=== PATIENT | female | born 1965 | race Caucasian/White ===

== ENCOUNTER → 2016-11-30 | Outpatient (CLI) | payer MEDICAID | END | disposition home or self-care (01) | LOC: CFH 12:27 | PROVIDERS: ATTEND Genetic Counselor, MS | DX: Z02.9 Encounter for administrative examinations, unspecified (principal) ==

== ENCOUNTER → 2017-02-02 | Outpatient (CLI) | payer MEDICAID | END | disposition home or self-care (01) | LOC: CFH 10:34 | PROVIDERS: ATTEND Genetic Counselor, MS | DX: Z02.9 Encounter for administrative examinations, unspecified (principal) ==

== ENCOUNTER → 2017-02-12 | Outpatient (CLI) | payer MEDICAID | END | disposition home or self-care (01) | LOC: CFH 14:07 | PROVIDERS: ATTEND Genetic Counselor, MS | DX: N63 Unspecified lump in breast (principal); R92.2 Inconclusive mammogram | CPT/HCPCS: 76641; G0204 ==

== ENCOUNTER 2018-10-05 13:43 | Inpatient (IN) | payer MEDICAID ==
[~2018-10-05] VITALS: Ht 162.6 cm; Wt 99.9 kg
[2018-10-05] MEDS ORDERED: SODIUM CHLORIDE FLUSH 10ML SYR IVF ONE (14:30)
[2018-10-05] MEDS ORDERED: PLEASE ENTER ALLERGIES MC SCH (14:30)
[2018-10-05 14:50] LABS: BASOPHILS # (AUTO) 0.02 x10^3/uL (0-0.1); BASOPHILS % (AUTO) 0 % (0-1); EOSINOPHILS % (AUTO) 2 % (1-7); LYMPHOCYTES # (AUTO) 1.22 x10^3/uL (1-3.4); LYMPHOCYTES % (AUTO) 21 % (22-44); MD NO; MEAN CORPUSCULAR HEMOGLOBIN 32.4 pg (27.0-34.8); MEAN CORPUSCULAR VOLUME 95.3 fL (80-100); MONOCYTES # (AUTO) 0.08 x10^3/uL (0.2-0.8); MONOCYTES % (AUTO) 2 % (2-9); NEUTROPHILS # (AUTO) 4.35 x10^3/uL (1.8-6.8); NEUTROPHILS % (AUTO) 75 % (42-75); PLATELET COUNT 198 x10^3/uL (130-400); RED BLOOD COUNT 3.69 x10^6/uL (3.82-5.3); RED CELL DISTRIBUTION WIDTH 14.5 % (9.6-15.2)
[2018-10-05 15:01] LABS: ALBUMIN 3.3 g/dL (3.4-5.0); ANION GAP 8 mmol/L (5-15); CALCIUM 8.6 mg/dL (8.5-10.1); CHLORIDE 110 mmol/L (98-107)
[2018-10-05 15:06] LABS: ALANINE AMINOTRANSFERASE 95 U/L (12-78); ALKALINE PHOSPHATASE 114 U/L (45-117); BILIRUBIN,TOTAL 0.6 mg/dL (0.2-1.0); CREATININE 0.76 mg/dL (0.55-1.02); TOTAL PROTEIN 6.3 g/dL (6.4-8.2); TROPONIN I 0.026 ng/mL (0.000-0.045)
[2018-10-05] MEDS ORDERED: OMNIPAQUE 350 MG/ML, 100ML BOTTLE ONE (16:45)
[2018-10-05] MEDS ORDERED: ALBUTEROL/IPRATROPIUM 2.5MG/0.5MG, 3 ML NPPB ONE (17:00)
--- NOTE | 2018-10-05 17:12 | NUR ---
PATIENT RETURNED FROM BATHROOM SLIGHTLY SHORT OF BREATH. ROOM AIR SATS 87%, PLACED ON 1.5L NC AND INCREASED TO 93%. PREDINSONE GIVEN TO PATIENT AND RECONNECTED TO CARDIAC/PULSE OX MONITORING.
[2018-10-05] MEDS ORDERED: ALBUTEROL/IPRATROPIUM 2.5MG/0.5MG, 3 ML ONE (17:15)
[2018-10-05] MEDS ORDERED: FLUT9.9S16 INH (17:44)
[2018-10-05] MEDS ORDERED: BUPR300T4 PO (17:44)
[2018-10-05] MEDS ORDERED: IBUP-653 PO (17:44)
[2018-10-05] MEDS ORDERED: OMEP-110 PO (17:44)
[2018-10-05] MEDS ORDERED: DEXT10TA7 PO (17:44)
[2018-10-05] MEDS ORDERED: ARIP2TAB8 PO (17:44)
[2018-10-05] MEDS ORDERED: ALBU18HF INH (17:44)
[2018-10-05] MEDS ORDERED: FLUT1BLS3 INH (17:44)
[2018-10-05] MEDS ORDERED: HYDR10TA4 PO (17:44)
[2018-10-05 18:41] VITALS: BP 116/83
[2018-10-05 19:47] VITALS: BP 120/87
[2018-10-05] MEDS ORDERED: LIDODERM 5% PATCH TD PRN (20:00)
[2018-10-05] MEDS ORDERED: hydrALAzine 20 MG/ML, 1ML IVPush PRN (20:00)
[2018-10-05] MEDS ORDERED: DOCUSATE 100 MG CAPSULE PO PRN (20:00)
[2018-10-05] MEDS ORDERED: ONDANSETRON ODT 4 MG PO PRN (20:00)
[2018-10-05] MEDS ORDERED: GABAPENTIN 300 MG CAPSULE PO PRN (20:00)
[2018-10-05] MEDS ORDERED: ACETAMINOPHEN 325 MG TABLET PO PRN (20:00)
[2018-10-05] MEDS ORDERED: ALBUTEROL SULFATE INH SCH (21:30)
[2018-10-05] MEDS ORDERED: ALBUTEROL/IPRATROPIUM 2.5MG/0.5MG, 3 ML NPPB PRN (22:00)
[2018-10-05] MEDS ORDERED: hydrOXyzine 10MG TABLET ONE (22:54)
[2018-10-05] MEDS: BUPROPION SR 150 MG TABLET PO SCH (23:17)
[2018-10-05] MEDS: hydrOXyzine 50MG TABLET PO PRN (23:17)
[2018-10-05] MEDS: IBUPROFEN 800 MG TABLET PO SCH (23:17)
[2018-10-06 02:20] VITALS: BP 96/63
[2018-10-06 05:54] LABS: BASOPHILS % (AUTO) 0 % (0-1); EOSINOPHILS % (AUTO) 0 % (1-7); LYMPHOCYTES # (AUTO) 0.73 x10^3/uL (1-3.4); LYMPHOCYTES % (AUTO) 13 % (22-44); MD NO; MEAN CORPUSCULAR HGB CONC 33.7 g/dL (32.4-35.8); MEAN CORPUSCULAR VOLUME 95.1 fL (80-100); MEAN PLATELET VOLUME 8.3 fL (7.4-10.4); MONOCYTES # (AUTO) 0.15 x10^3/uL (0.2-0.8); MONOCYTES % (AUTO) 3 % (2-9); NEUTROPHILS # (AUTO) 4.99 x10^3/uL (1.8-6.8); NEUTROPHILS % (AUTO) 85 % (42-75); PLATELET COUNT 214 x10^3/uL (130-400); RED BLOOD COUNT 3.87 x10^6/uL (3.82-5.3); RED CELL DISTRIBUTION WIDTH 14.4 % (9.6-15.2)
[2018-10-06 05:59] LABS: ANION GAP 7 mmol/L (5-15); CALCIUM 9.1 mg/dL (8.5-10.1); CHLORIDE 106 mmol/L (98-107)
[2018-10-06 07:34] VITALS: BP 121/78
[2018-10-06] MEDS: OMEPRAZOLE 20 MG CAPSULE.DR PO SCH (08:04)
[2018-10-06] MEDS: BUPROPION SR 150 MG TABLET PO SCH ×2 (08:04→20:42)
[2018-10-06] MEDS: IBUPROFEN 800 MG TABLET PO SCH ×2 (08:04→20:43)
[2018-10-06] MEDS: ARIPIPRAZOLE 2 MG TABLET PO SCH (08:04)
[2018-10-06] MEDS ORDERED: BUPROPION SR 150 MG TABLET PO SCH (09:00)
[2018-10-06] MEDS ORDERED: IBUPROFEN 800 MG TABLET PO SCH (09:00)
[2018-10-06] MEDS ORDERED: hydrOXyzine 10MG TABLET PO SCH (09:00)
[2018-10-06] MEDS: FLUTICASONE NASAL SPRAY 16GM NAS SCH (09:18)
[2018-10-06] MEDS: ALBUTEROL/IPRATROPIUM 2.5MG/0.5MG, 3 ML HHN SCH ×2 (09:50→21:00)
[2018-10-06 12:16] VITALS: BP 95/67
[2018-10-06] MEDS: BUDESONIDE 0.5 MG/2 ML INHA NPPB SCH ×2 (13:45→21:00)
[2018-10-06 19:00] VITALS: BP 106/69
[2018-10-06] MEDS ORDERED: POTASSIUM CHLORIDE 20 MEQ TAB.ER.PRT PO ONE (19:00)
[2018-10-06] MEDS: TEMAZEPAM 15 MG CAPSULE PO PRN (20:42)
[2018-10-06] MEDS: FUROSEMIDE 20 MG/2 ML IV SCH (20:42)
[2018-10-06] MEDS: hydrOXyzine 50MG TABLET PO PRN (20:47)
[2018-10-07 01:09] VITALS: BP 110/72
[2018-10-07] MEDS: ALBUTEROL/IPRATROPIUM 2.5MG/0.5MG, 3 ML HHN SCH ×7 (06:00→21:00)
[2018-10-07 06:52] LABS: ANION GAP 5 mmol/L (5-15); CALCIUM 9.4 mg/dL (8.5-10.1); CHLORIDE 105 mmol/L (98-107); CREATININE 0.88 mg/dL (0.55-1.02)
[2018-10-07 07:29] VITALS: BP 114/78
[2018-10-07] MEDS: FLUTICASONE NASAL SPRAY 16GM NAS SCH (08:32)
[2018-10-07] MEDS: IBUPROFEN 800 MG TABLET PO SCH ×2 (08:32→20:49)
[2018-10-07] MEDS: ARIPIPRAZOLE 2 MG TABLET PO SCH (08:32)
[2018-10-07] MEDS: FUROSEMIDE 20 MG/2 ML IV SCH ×2 (08:33→17:43)
[2018-10-07] MEDS: OMEPRAZOLE 20 MG CAPSULE.DR PO SCH (08:33)
[2018-10-07] MEDS: BUPROPION SR 150 MG TABLET PO SCH ×2 (08:33→20:50)
[2018-10-07] MEDS: BUDESONIDE 0.5 MG/2 ML INHA NPPB SCH ×2 (09:00→20:00)
[2018-10-07] MEDS ORDERED: LISINOPRIL 5 MG TABLET PO SCH (12:30)
[2018-10-07 13:56] VITALS: BP 118/74
[2018-10-07] MEDS: SPIRONOLACTONE 25 MG TABLET PO SCH (14:13)
[2018-10-07] MEDS: CARVEDILOL 3.125 MG TABLET PO SCH (17:43)
[2018-10-07 19:02] VITALS: BP 117/76
[2018-10-07] MEDS: hydrOXyzine 50MG TABLET PO PRN (20:49)
[2018-10-07] MEDS: TEMAZEPAM 15 MG CAPSULE PO PRN (20:50)
[2018-10-08 01:15] VITALS: BP 116/80
[2018-10-08] MEDS: CARVEDILOL 3.125 MG TABLET PO SCH ×2 (05:43→16:48)
[2018-10-08 06:16] LABS: ALBUMIN 3.4 g/dL (3.4-5.0); ANION GAP 5 mmol/L (5-15); CALCIUM 9.3 mg/dL (8.5-10.1); CHLORIDE 103 mmol/L (98-107)
[2018-10-08 06:22] LABS: ALANINE AMINOTRANSFERASE 64 U/L (12-78); ALKALINE PHOSPHATASE 95 U/L (45-117); BILIRUBIN,TOTAL 0.6 mg/dL (0.2-1.0); CHOL/HDL RATIO 2.5; CHOLESTEROL, TOTAL 204 mg/dL (140-239); CREATININE 0.77 mg/dL (0.55-1.02); HDL CHOL % 41 % (28-40); HDL CHOLESTEROL (DIRECT) 83 mg/dL (40-60); LDL CHOLESTEROL,CALCULATED 104 mg/dL (54-169); LDL/HDL RATIO 1.3 (0.5-3.0); TOTAL PROTEIN 6.9 g/dL (6.4-8.2); TRIGLYCERIDES 84 mg/dL (50-200); VLDL CHOLESTEROL 17 mg/dL (0-25)
[2018-10-08] MEDS: BUDESONIDE 0.5 MG/2 ML INHA NPPB SCH ×3 (06:40→20:45)
[2018-10-08 08:37] VITALS: BP 107/76
[2018-10-08] MEDS: FUROSEMIDE 20 MG/2 ML IV SCH ×2 (08:51→16:48)
[2018-10-08] MEDS: FLUTICASONE NASAL SPRAY 16GM NAS SCH (08:51)
[2018-10-08] MEDS: SPIRONOLACTONE 25 MG TABLET PO SCH (08:51)
[2018-10-08] MEDS: IBUPROFEN 800 MG TABLET PO SCH ×2 (08:51→20:12)
[2018-10-08] MEDS: BUPROPION SR 150 MG TABLET PO SCH ×2 (08:51→20:12)
[2018-10-08] MEDS: ARIPIPRAZOLE 2 MG TABLET PO SCH (08:51)
[2018-10-08] MEDS: OMEPRAZOLE 20 MG CAPSULE.DR PO SCH (08:51)
[2018-10-08 12:49] VITALS: BP 108/75
[2018-10-08 19:43] VITALS: BP 112/73
[2018-10-08] MEDS ORDERED: hydrOXyzine 10MG TABLET ONE (20:09)
[2018-10-08] MEDS: TEMAZEPAM 15 MG CAPSULE PO PRN (20:12)
[2018-10-08] MEDS: hydrOXyzine 50MG TABLET PO PRN (20:13)
[2018-10-09 01:37] VITALS: BP 114/78
[2018-10-09 04:55] VITALS: BP 113/77
[2018-10-09] MEDS: CARVEDILOL 3.125 MG TABLET PO SCH ×2 (04:57→17:46)
[2018-10-09 08:00] VITALS: BP 111/80
[2018-10-09] MEDS: OMEPRAZOLE 20 MG CAPSULE.DR PO SCH (08:15)
[2018-10-09] MEDS: IBUPROFEN 800 MG TABLET PO SCH ×2 (08:18→19:55)
[2018-10-09] MEDS: LOSARTAN 25MG TABLET PO SCH (08:18)
[2018-10-09] MEDS: SPIRONOLACTONE 25 MG TABLET PO SCH (08:19)
[2018-10-09] MEDS: BUPROPION SR 150 MG TABLET PO SCH ×2 (08:19→19:56)
[2018-10-09] MEDS: ARIPIPRAZOLE 2 MG TABLET PO SCH (08:20)
[2018-10-09] MEDS: FLUTICASONE NASAL SPRAY 16GM NAS SCH (08:21)
[2018-10-09] MEDS: FUROSEMIDE 20 MG/2 ML IV SCH ×2 (08:22→17:46)
[2018-10-09] MEDS: BUDESONIDE 0.5 MG/2 ML INHA NPPB SCH ×2 (08:35→21:30)
[2018-10-09] MEDS ORDERED: SODIUM CHLORIDE 0.9% 1,000 ML IV SCH (11:00)
[2018-10-09 14:40] VITALS: BP 110/73
[2018-10-09] MEDS ORDERED: hydrOXyzine 10MG TABLET ONE (19:53)
[2018-10-09] MEDS: TEMAZEPAM 15 MG CAPSULE PO PRN (19:55)
[2018-10-09] MEDS: hydrOXyzine 50MG TABLET PO PRN (19:56)
[2018-10-09 20:30] VITALS: BP 123/86
[2018-10-10 05:05] VITALS: BP 113/79
[2018-10-10] MEDS: CARVEDILOL 3.125 MG TABLET PO SCH ×2 (05:09→16:18)
[2018-10-10 06:21] LABS: INTERNATIONAL NORMALIZED RATIO 1.01 (0.93-1.1); PROTHROMBIN TIME 10.7 Seconds (9.6-11.5)
[2018-10-10 06:27] LABS: ANION GAP 4 mmol/L (5-15); CALCIUM 9.3 mg/dL (8.5-10.1); CHLORIDE 104 mmol/L (98-107); CREATININE 0.84 mg/dL (0.55-1.02)
[2018-10-10 06:32] LABS: BASOPHILS # (AUTO) 0.04 x10^3/uL (0-0.1); BASOPHILS % (AUTO) 0 % (0-1); EOSINOPHILS # (AUTO) 0.18 x10^3/uL (0-0.4); EOSINOPHILS % (AUTO) 2 % (1-7); LYMPHOCYTES # (AUTO) 2.47 x10^3/uL (1-3.4); LYMPHOCYTES % (AUTO) 26 % (22-44); MD NO; MEAN CORPUSCULAR HEMOGLOBIN 32.1 pg (27.0-34.8); MEAN CORPUSCULAR HGB CONC 33.8 g/dL (32.4-35.8); MEAN CORPUSCULAR VOLUME 95.1 fL (80-100); MEAN PLATELET VOLUME 8.8 fL (7.4-10.4); MONOCYTES # (AUTO) 0.73 x10^3/uL (0.2-0.8); MONOCYTES % (AUTO) 8 % (2-9); NEUTROPHILS # (AUTO) 6.02 x10^3/uL (1.8-6.8); NEUTROPHILS % (AUTO) 64 % (42-75); PLATELET COUNT 263 x10^3/uL (130-400); RED BLOOD COUNT 4.99 x10^6/uL (3.82-5.3); RED CELL DISTRIBUTION WIDTH 14.4 % (9.6-15.2)
[2018-10-10 07:30] VITALS: BP 112/84
[2018-10-10] MEDS: OMEPRAZOLE 20 MG CAPSULE.DR PO SCH (07:30)
[2018-10-10] MEDS: FUROSEMIDE 20 MG/2 ML IV SCH ×2 (07:30→16:18)
[2018-10-10] MEDS: LOSARTAN 25MG TABLET PO SCH (08:45)
[2018-10-10] MEDS: SPIRONOLACTONE 25 MG TABLET PO SCH (08:45)
[2018-10-10] MEDS: BUPROPION SR 150 MG TABLET PO SCH ×2 (08:45→19:56)
[2018-10-10] MEDS: IBUPROFEN 800 MG TABLET PO SCH ×2 (08:45→19:56)
[2018-10-10] MEDS: ARIPIPRAZOLE 2 MG TABLET PO SCH (08:45)
[2018-10-10] MEDS: FLUTICASONE NASAL SPRAY 16GM NAS SCH (08:55)
[2018-10-10 08:59] VITALS: BP 113/86
[2018-10-10] MEDS: BUDESONIDE 0.5 MG/2 ML INHA NPPB SCH ×2 (11:10→20:32)
[2018-10-10] MEDS ORDERED: MIDAZOLAM 1 MG/ML, 2ML ONE (11:24)
[2018-10-10] MEDS ORDERED: VERAPAMIL 2.5 MG/ML, 2ML ONE (11:24)
[2018-10-10] MEDS ORDERED: NITROGLYCERIN 5 MG/ML, 10ML ONE (11:24)
[2018-10-10] MEDS ORDERED: HEPARIN 1,000 UNITS/ML, 10ML ONE (11:24)
[2018-10-10] MEDS ORDERED: FENTANYL PF 100 MCG/2ML ONE (11:24)
[2018-10-10] MEDS ORDERED: LIDOCAINE-MPF 1%, 5ML ONE (11:25)
[2018-10-10 14:00] VITALS: BP 100/73
[2018-10-10 18:38] VITALS: BP 101/70
[2018-10-10] MEDS: TEMAZEPAM 15 MG CAPSULE PO PRN ×2 (20:05→20:11)
[2018-10-10] MEDS: hydrOXyzine 50MG TABLET PO PRN (20:11)
[2018-10-11 01:59] VITALS: BP 102/78
[2018-10-11 05:04] LABS: ANION GAP 6 mmol/L (5-15); CALCIUM 9.1 mg/dL (8.5-10.1); CHLORIDE 102 mmol/L (98-107)
[2018-10-11 05:43] VITALS: BP 118/88
[2018-10-11] MEDS: CARVEDILOL 3.125 MG TABLET PO SCH ×2 (05:47→18:17)
[2018-10-11 08:08] VITALS: BP 122/83
[2018-10-11] MEDS: BUDESONIDE 0.5 MG/2 ML INHA NPPB SCH ×2 (08:15→21:00)
[2018-10-11] MEDS: FLUTICASONE NASAL SPRAY 16GM NAS SCH (08:33)
[2018-10-11] MEDS: OMEPRAZOLE 20 MG CAPSULE.DR PO SCH (08:33)
[2018-10-11] MEDS: FUROSEMIDE 20 MG/2 ML IV SCH (08:33)
[2018-10-11] MEDS: IBUPROFEN 800 MG TABLET PO SCH ×2 (08:33→22:18)
[2018-10-11] MEDS: SPIRONOLACTONE 25 MG TABLET PO SCH (08:33)
[2018-10-11] MEDS: BUPROPION SR 150 MG TABLET PO SCH ×2 (08:34→22:18)
[2018-10-11] MEDS: LOSARTAN 25MG TABLET PO SCH (08:34)
[2018-10-11] MEDS: ARIPIPRAZOLE 2 MG TABLET PO SCH (10:39)
[2018-10-11] MEDS ORDERED: FUROSEMIDE 40 MG/4 ML IV ONE (12:00)
[2018-10-11 13:32] VITALS: BP 107/76
[2018-10-11 19:30] VITALS: BP 108/74
[2018-10-11] MEDS: hydrOXyzine 50MG TABLET PO PRN (22:18)
[2018-10-11] MEDS: TEMAZEPAM 15 MG CAPSULE PO PRN (22:19)
[2018-10-12 02:43] VITALS: BP 101/74
[2018-10-12 05:02] LABS: ANION GAP 7 mmol/L (5-15); CALCIUM 9.1 mg/dL (8.5-10.1); CHLORIDE 102 mmol/L (98-107); CREATININE 0.89 mg/dL (0.55-1.02)
[2018-10-12] MEDS: CARVEDILOL 3.125 MG TABLET PO SCH (06:48)
[2018-10-12 07:32] VITALS: BP 104/69
[2018-10-12] MEDS: BUDESONIDE 0.5 MG/2 ML INHA NPPB SCH (08:09)
[2018-10-12] MEDS: FLUTICASONE NASAL SPRAY 16GM NAS SCH (09:59)
[2018-10-12] MEDS: OMEPRAZOLE 20 MG CAPSULE.DR PO SCH (09:59)
[2018-10-12] MEDS ORDERED: FUROSEMIDE 40 MG/4 ML IV ONE (10:00)
[2018-10-12] MEDS: SPIRONOLACTONE 25 MG TABLET PO SCH (10:01)
[2018-10-12] MEDS: LOSARTAN 25MG TABLET PO SCH (10:02)
[2018-10-12] MEDS: IBUPROFEN 800 MG TABLET PO SCH (10:03)
[2018-10-12] MEDS: BUPROPION SR 150 MG TABLET PO SCH (10:03)
[2018-10-12 10:04] VITALS: BP 125/87
[2018-10-12] MEDS: ARIPIPRAZOLE 2 MG TABLET PO SCH (10:19)
[2018-10-12 13:22] VITALS: BP 99/70
[2018-10-12] MEDS ORDERED: CARV3.1212 PO (14:08)
[2018-10-12] MEDS ORDERED: POTA20TA6 PO (14:08)
[2018-10-12] MEDS ORDERED: FURO-92 PO (14:08)
[2018-10-12] MEDS ORDERED: LOSA25TA25 PO (14:08)
[2018-10-12] MEDS ORDERED: SIMV40TA3 PO (14:10)
[2018-10-12] MEDS ORDERED: SPIR25TA PO (14:13)
== END 2018-10-12 17:19 | disposition home or self-care (01) | DRG 286 ==
LOC: ED 17:01 → EDIP 17:02 → ED 17:17 → 4EST 18:27 → 5SO 10-10 12:53 → DCLOUNGE 10-12 16:57
PROVIDERS: ADMIT Internal Medicine; ATTEND Internal Medicine
PROC: 4A023N8 Measurement of Cardiac Sampling and Pressure, Bilateral, Percutaneous Approach (ICD-10-PCS; principal; 2018-10-10)
PROC: B2111ZZ Fluoroscopy of Multiple Coronary Arteries using Low Osmolar Contrast (ICD-10-PCS; 2018-10-10)
PROC: B2161ZZ Fluoroscopy of Right and Left Heart using Low Osmolar Contrast (ICD-10-PCS; 2018-10-10)
DX: I42.9 Cardiomyopathy, unspecified (principal); J96.21 Acute and chronic respiratory failure with hypoxia; I26.09 Other pulmonary embolism with acute cor pulmonale; I50.21 Acute systolic (congestive) heart failure; F33.9 Major depressive disorder, recurrent, unspecified; J44.1 Chronic obstructive pulmonary disease with (acute) exacerbation; J98.11 Atelectasis; E66.01 Morbid (severe) obesity due to excess calories; F10.10 Alcohol abuse, uncomplicated; F15.10 Other stimulant abuse, uncomplicated; I08.1 Rheumatic disorders of both mitral and tricuspid valves; I11.0 Hypertensive heart disease with heart failure; I25.10 Atherosclerotic heart disease of native coronary artery without angina pectoris; Z68.37 Body mass index [BMI] 37.0-37.9, adult; Z72.0 Tobacco use; Z83.3 Family history of diabetes mellitus; Z87.01 Personal history of pneumonia (recurrent); Z99.81 Dependence on supplemental oxygen; Z88.8 Allergy status to other drugs, medicaments and biological substances; R73.9 Hyperglycemia, unspecified
CPT/HCPCS: 36415; 93460; 99285; J7620; J7626; 71045; 71275; 80048; 80053; 80061; 80074; 83036; 83735; 83880; 84484; 85025; 85610; 93005; 94640; 99156; C1769; C1894; C8929; G0378; J1644; J1940; J2250; J3010; Q9967; J7512

== ENCOUNTER 2018-11-10 10:41 | Outpatient (CLI) | payer MEDICAID ==
[~2018-11-10 10:41] MED LIST: ALBU18HF INH; ARIP2TAB8 PO; BUPR300T4 PO; CARV3.1212 PO; DEXT10TA7 PO; FLUT1BLS3 INH; FLUT9.9S16 INH; FURO-92 PO; HYDR10TA4 PO; IBUP-653 PO; LOSA25TA25 PO; OMEP-110 PO; POTA20TA6 PO; SIMV40TA3 PO; SPIR25TA PO
== END 2018-11-10 23:59 | disposition home or self-care (01) ==
LOC: CVU 10:41
PROVIDERS: ATTEND Internal Medicine Cardiovascular Disease
DX: I34.0 Nonrheumatic mitral (valve) insufficiency (principal); I50.9 Heart failure, unspecified; E78.5 Hyperlipidemia, unspecified; I42.9 Cardiomyopathy, unspecified
CPT/HCPCS: C8929; Q9957

== ENCOUNTER 2019-01-02 11:53 | Emergency (ER) | payer MEDICAID ==
[~2019-01-02] VITALS: Ht 162.6 cm; Wt 98.8 kg
[2019-01-02] MEDS ORDERED: ASPIRIN 81 MG TABLET CHEW PO ONE (12:30)
[2019-01-02 12:55] LABS: BASOPHILS # (AUTO) 0.04 x10^3/uL (0-0.1); BASOPHILS % (AUTO) 1 % (0-1); EOSINOPHILS # (AUTO) 0.18 x10^3/uL (0-0.4); EOSINOPHILS % (AUTO) 2 % (1-7); LYMPHOCYTES % (AUTO) 27 % (22-44); MD NO; MEAN CORPUSCULAR HEMOGLOBIN 30.9 pg (27.0-34.8); MEAN CORPUSCULAR VOLUME 90.9 fL (80-100); MEAN PLATELET VOLUME 8.5 fL (7.4-10.4); MONOCYTES # (AUTO) 0.43 x10^3/uL (0.2-0.8); MONOCYTES % (AUTO) 6 % (2-9); NEUTROPHILS # (AUTO) 4.82 x10^3/uL (1.8-6.8); NEUTROPHILS % (AUTO) 65 % (42-75); PLATELET COUNT 255 x10^3/uL (130-400); RED BLOOD COUNT 4.49 x10^6/uL (3.82-5.3); RED CELL DISTRIBUTION WIDTH 12.5 % (9.6-15.2)
[2019-01-02 13:06] LABS: ANION GAP 4 mmol/L (5-15); CALCIUM 9.7 mg/dL (8.5-10.1); CHLORIDE 102 mmol/L (98-107); CREATININE 0.75 mg/dL (0.55-1.02)
[2019-01-02 13:10] LABS: TROPONIN I < 0.015 ng/mL (0.000-0.045)
--- NOTE | 2019-01-02 13:49 | NUR ---
TO ROOM FROM [facility]. PT ON HOME O2. STATES SHE AWOKE THIS MORNING WITH CP. MD KILLIAN COMPLETED ON ARRVIAL TO ROOM
[2019-01-02 14:01] VITALS: BP 121/69
--- NOTE | 2019-01-02 14:09 | NUR ---
Catr[place] RN: Patient given discharge instructions and they have confirmed that they understand the instructions. Patient ambulatory with steady gait.
== END 2019-01-02 14:10 | disposition home or self-care (01) ==
LOC: ED 14:04
DX: R07.2 Precordial pain (principal); J44.9 Chronic obstructive pulmonary disease, unspecified; I50.9 Heart failure, unspecified; I11.0 Hypertensive heart disease with heart failure
CPT/HCPCS: 36415; 71046; 80048; 82040; 84484; 85025; 93005; 99284

== ENCOUNTER 2019-03-09 15:22 | Outpatient (CLI) | payer MEDICAID | END 2019-03-09 23:59 | disposition home or self-care (01) | LOC: CVU 15:22 | PROVIDERS: ATTEND Internal Medicine Cardiovascular Disease | DX: I08.3 Combined rheumatic disorders of mitral, aortic and tricuspid valves (principal); E78.5 Hyperlipidemia, unspecified; I50.9 Heart failure, unspecified | CPT/HCPCS: 93306 ==

== ENCOUNTER 2019-08-29 11:04 | Outpatient (CLI) | payer MEDICAID ==
[~2019-08-29 11:04] MED LIST changes: +ARIP2TAB17 PO; -ARIP2TAB8 PO; -BUPR300T4 PO; +BUPR300T94 PO; +HYDR-2995 PO; -HYDR10TA4 PO; +SIMV40TA20 PO; -SIMV40TA3 PO
== END 2019-08-29 23:59 | disposition home or self-care (01) ==
LOC: CFH 11:04
PROVIDERS: ATTEND Internal Medicine Cardiovascular Disease
DX: I08.3 Combined rheumatic disorders of mitral, aortic and tricuspid valves (principal); I42.9 Cardiomyopathy, unspecified; I10 Essential (primary) hypertension; J44.9 Chronic obstructive pulmonary disease, unspecified; Z72.0 Tobacco use
CPT/HCPCS: 93306

== ENCOUNTER → 2020-03-13 | Outpatient (CLI) | payer MEDICAID | END | disposition home or self-care (01) | LOC: CFH 13:44 | PROVIDERS: ATTEND Genetic Counselor, MS | DX: N63.20 Unspecified lump in the left breast, unspecified quadrant (principal); N63.10 Unspecified lump in the right breast, unspecified quadrant; R92.8 Other abnormal and inconclusive findings on diagnostic imaging of breast | CPT/HCPCS: 76642; 77066; G0279 ==

== ENCOUNTER 2020-09-09 15:22 | Emergency (ER) | payer MEDICAID ==
[~2020-09-09] VITALS: Ht 162.6 cm; Wt 77.5 kg
--- NOTE | 2020-09-09 15:44 | NUR ---
rug cleaner: EKG done in triage
--- NOTE | 2020-09-09 15:59 | NUR ---
hog operator note: Pt to room from lobby.
--- NOTE | 2020-09-09 16:18 | NUR ---
ASSUMED CARE OF PATIENT. PATIENT REPORTS LEFT AND RIGHT CHEST PAIN X5 DAYS. COOK JELLY ON NSR NOTED. VS STABLE. CALL LIGHT IN PLACE. WILL CONTINUE TO MONITOR.
[2020-09-09 16:22] LABS: BASOPHILS % (AUTO) 1 % (0-1); EOSINOPHILS % (AUTO) 4 % (1-7); LYMPHOCYTES % (AUTO) 22 % (22-44); MEAN CORPUSCULAR HEMOGLOBIN 29.6 pg (27.0-34.8); MEAN CORPUSCULAR HGB CONC 33.4 g/dL (32.4-35.8); MEAN PLATELET VOLUME 7.5 fL (7.4-10.4); MONOCYTES % (AUTO) 9 % (2-9); NEUTROPHILS % (AUTO) 64 % (42-75); PLATELET COUNT 191 x10^3/uL (130-400); RED BLOOD COUNT 4.04 x10^6/uL (3.82-5.3); RED CELL DISTRIBUTION WIDTH 13.2 % (9.6-15.2)
[2020-09-09 16:23] LABS: MD NO
[2020-09-09 16:33] LABS: ANION GAP 7 mmol/L (5-15); CALCIUM 9.7 mg/dL (8.5-10.1); CHLORIDE 107 mmol/L (98-107); CREATININE 0.55 mg/dL (0.55-1.02)
[2020-09-09 16:37] LABS: TROPONIN I < 0.015 ng/mL (0.000-0.045)
[2020-09-09] MEDS ORDERED: KETOROLAC 30 MG/1 ML ONE (16:40)
[2020-09-09] MEDS ORDERED: KETOROLAC 30 MG/1 ML IVPush ONE (17:30)
[2020-09-09 17:48] VITALS: BP 134/97
--- NOTE | 2020-09-09 17:50 | NUR ---
pt discharged with home oxygen with family. vs stable. no acute distress noted. pt discharged
== END 2020-09-09 18:13 | disposition home or self-care (01) ==
LOC: ED 17:00
DX: R07.89 Other chest pain (principal); M94.0 Chondrocostal junction syndrome [Tietze]; R05 Cough; R00.0 Tachycardia, unspecified; I11.0 Hypertensive heart disease with heart failure; I50.9 Heart failure, unspecified; J44.9 Chronic obstructive pulmonary disease, unspecified; Z87.891 Personal history of nicotine dependence; Z88.8 Allergy status to other drugs, medicaments and biological substances; Z88.6 Allergy status to analgesic agent
CPT/HCPCS: 36415; 71045; 80048; 82040; 83880; 84484; 85025; 93005; 96374; 99285; J1885

== ENCOUNTER 2021-01-06 22:48 | Inpatient (IN) | payer MEDICAID ==
[~2021-01-06] VITALS: Ht 162.6 cm; Wt 75.0 kg
[2021-01-06] MEDS ORDERED: SODIUM CHLORIDE FLUSH 10ML SYR IVF ONE (23:30)
[2021-01-06] MEDS ORDERED: ONDANSETRON 2MG/ML, 2ML IVPush ONE (23:30)
[2021-01-06] MEDS ORDERED: SODIUM CHLORIDE 0.9% 1,000 ML IV ONE (23:30)
[2021-01-06] MEDS ORDERED: MORPHINE SULFATE 4 MG/ML, 1ML IVPush PRN (23:30)
[2021-01-06] MEDS ORDERED: FAMOTIDINE 20 MG/2 ML IVPush ONE (23:30)
[2021-01-07] MEDS ORDERED: FAMOTIDINE 20 MG/2 ML ONE (00:12)
[2021-01-07] MEDS ORDERED: ONDANSETRON 2MG/ML, 2ML ONE (00:12)
[2021-01-07] MEDS ORDERED: MORPHINE SULFATE 4 MG/ML, 1ML ONE (00:12)
[2021-01-07 00:27] LABS: MEAN CORPUSCULAR HEMOGLOBIN 29.4 pg (27.0-34.8); MEAN CORPUSCULAR HGB CONC 33.5 g/dL (32.4-35.8); MEAN PLATELET VOLUME 9.2 fL (7.4-10.4); PLATELET COUNT 153 x10^3/uL (130-400); RED BLOOD COUNT 3.74 x10^6/uL (3.82-5.3)
[2021-01-07 00:32] LABS: ALBUMIN 2.4 g/dL (3.4-5.0); ANION GAP 12 mmol/L (5-15); CHLORIDE 95 mmol/L (98-107)
--- NOTE | 2021-01-07 00:38 | NUR ---
ERP DR. MORAN AWARE OF PT BP.
[2021-01-07 00:39] LABS: MICROSCOPIC INDICATED
[2021-01-07 00:39] LABS: ALANINE AMINOTRANSFERASE 23 U/L (12-78); ALKALINE PHOSPHATASE 157 U/L (45-117); BILIRUBIN,TOTAL 0.6 mg/dL (0.2-1.0); CREATININE 2.45 mg/dL (0.55-1.02); TROPONIN I < 0.015 ng/mL (0.000-0.045)
[2021-01-07] MEDS: CEFTRIAXONE 1,000 MG in DEXTROSE 5% 50 ML IVPB ONE ×2 (01:00→01:09)
[2021-01-07] MEDS ORDERED: SODIUM CHLORIDE 0.9% 1,000ML IVBOLUS ONE ×2 (01:00→01:30)
[2021-01-07 01:01] LABS: BAND#(MANUAL) 1.08 x10^3/uL; BANDS%(MANUAL) 13 % (0-7); EOS#(MANUAL) 0.08 x10^3/uL (0.0-0.4); EOS% (MANUAL) 1 % (1-7); LYMPHS% (MANUAL) 6 % (22-44); MD YES; METAMYELOCYTES# (MANUAL) 0.08 x10^3/uL (0-0); METAMYELOCYTES% (MANUAL) 1 % (0-1); MONOS% (MANUAL) 6 % (2-9); MYELOCYTES# (MANUAL) 0.08 x10^3/uL (0-0); MYELOCYTES% (MANUAL) 1 % (0-0); SEG#(MANUAL) 5.98 x10^3/uL (1.8-6.8); SEGS% (MANUAL) 72 % (42-75)
[2021-01-07 01:02] LABS: ANISOCYTOSIS 1+; PMNS WITH VACUOLES 1+
[2021-01-07 01:03] LABS: <PLATELET ESTIMATE> ADEQUATE; LARGE PLATELETS 1+
--- NOTE | 2021-01-07 01:04 | NUR ---
PER ERP DR. MORAN CONTINUE IVF ONE AT 250 ML/HR AND ONE 1000 ML BOLUS. PT BP 87/55 AT THIS TIME. PT STATES SHE IS ON CARVEDILOL. ERP DR. MORAN MADE AWARE. REPORT GIVEN TO JUVENAL SLADE.
--- NOTE | 2021-01-07 01:10 | NUR ---
REPORT TO JUVENAL ANGELES
[2021-01-07] MEDS: SODIUM CHLORIDE 0.9% 1,000 ML IV SCH ×2 (02:00→15:00)
[2021-01-07] MEDS ORDERED: hydrALAzine 20 MG/ML, 1ML IVPush PRN (02:00)
[2021-01-07] MEDS ORDERED: DOCUSATE 100 MG CAPSULE PO PRN (02:00)
[2021-01-07] MEDS ORDERED: ONDANSETRON ODT 4 MG PO PRN (02:00)
[2021-01-07] MEDS ORDERED: PROMETHAZINE 25 MG/ML, 1ML IM PRN (02:00)
[2021-01-07] MEDS ORDERED: ONDANSETRON 2MG/ML, 2ML IVPush PRN (02:00)
[2021-01-07] MEDS ORDERED: POTASSIUM CHLORIDE 40 MEQ in SODIUM CHLORIDE 0.9% 500 ML IV ONE (02:00)
[2021-01-07] MEDS ORDERED: BISACODYL 10 MG SUPP PR PRN (02:00)
[2021-01-07] MEDS ORDERED: LORazepam 0.5MG TABLET PO PRN (02:00)
[2021-01-07] MEDS ORDERED: POLYETHYLENE GLYCOL 17 GM PACKET PO PRN (02:00)
[2021-01-07] MEDS ORDERED: LORazepam 1MG TABLET PO PRN ×4 (02:00)
[2021-01-07] MEDS ORDERED: LORazepam 2 MG/ML, 1ML IV PRN ×5 (02:00)
[2021-01-07] MEDS ORDERED: ENOXAPARIN 40 MG/0.4 ML SQ SCH (02:00)
[2021-01-07 02:14] VITALS: BP 96/58
[2021-01-07] MEDS: PIPERACILLIN/TAZO 2.25 GM in SODIUM CHLORIDE 0.9% 50 ML IVPB SCH ×4 (02:28→20:07)
[2021-01-07] MEDS: HEPARIN 5,000 UNITS/ML, 1ML SQ SCH ×3 (02:30→20:08)
[2021-01-07 02:42] VITALS: BP 97/65
[2021-01-07] MEDS: OXYcodone IR 5MG TABLET PO PRN (05:47)
[2021-01-07 06:39] VITALS: BP 90/60
[2021-01-07] MEDS ORDERED: CARV12.5 PO (11:12)
[2021-01-07] MEDS ORDERED: LOSA25TA25 PO (11:13)
[2021-01-07] MEDS ORDERED: BUPR150T73 PO (11:14)
[2021-01-07] MEDS ORDERED: SERT100T PO (11:21)
[2021-01-07] MEDS ORDERED: LOPE-114 PO (11:21)
[2021-01-07] MEDS ORDERED: HYDR50TA99 PO (11:21)
[2021-01-07] MEDS ORDERED: FLUO40CA9 PO (11:21)
[2021-01-07 12:37] VITALS: BP 96/62
[2021-01-07 18:50] LABS: AMPHETAMINE SCREEN, URINE Positive (Negative); BARBITURATE SCREEN, URINE Negative (Negative); BENZODIAZEPINE SCREEN, URINE Negative (Negative); CANNABINOID SCREEN, URINE Positive (Negative); COCAINE SCREEN, URINE Negative (Negative); METHADONE SCREEN, URINE Negative (Negative); OPIATE SCREEN, URINE Positive (Negative)
[2021-01-07 18:58] VITALS: BP 101/64
[2021-01-07] MEDS ORDERED: HALOPERIDOL 5 MG/ML IM ONE ×2 (21:00→22:00)
[2021-01-08 00:50] VITALS: BP 133/86
[2021-01-08] MEDS: PIPERACILLIN/TAZO 2.25 GM in SODIUM CHLORIDE 0.9% 50 ML IVPB SCH (01:25)
[2021-01-08 04:30] LABS: MEAN CORPUSCULAR HEMOGLOBIN 29.5 pg (27.0-34.8); MEAN CORPUSCULAR HGB CONC 33.9 g/dL (32.4-35.8); MEAN PLATELET VOLUME 9.1 fL (7.4-10.4); PLATELET COUNT 157 x10^3/uL (130-400); RED BLOOD COUNT 3.21 x10^6/uL (3.82-5.3); RED CELL DISTRIBUTION WIDTH 13.2 % (9.6-15.2)
[2021-01-08] MEDS: HEPARIN 5,000 UNITS/ML, 1ML SQ SCH ×3 (04:30→20:22)
[2021-01-08 04:42] LABS: CHLORIDE 105 mmol/L (98-107)
[2021-01-08 04:55] LABS: ANION GAP 11 mmol/L (5-15); CREATININE 1.22 mg/dL (0.55-1.02)
[2021-01-08 04:56] LABS: ALANINE AMINOTRANSFERASE 18 U/L (12-78); ALBUMIN 2.1 g/dL (3.4-5.0); ALKALINE PHOSPHATASE 183 U/L (45-117); BILIRUBIN,TOTAL 0.5 mg/dL (0.2-1.0); CHOL/HDL RATIO 14.8; CHOLESTEROL, TOTAL 133 mg/dL (140-239); HDL CHOL % 7 % (28-40); HDL CHOLESTEROL (DIRECT) 9 mg/dL (40-60); TOTAL PROTEIN 6.1 g/dL (6.4-8.2); TRIGLYCERIDES 429 mg/dL (50-200)
[2021-01-08 05:41] LABS: MD YES
[2021-01-08 05:43] LABS: <PLATELET ESTIMATE> ADEQUATE; BANDS%(MANUAL) 2 % (0-7); LYMPH#(MANUAL) 0.51 x10^3/uL (1-3.4); LYMPHS% (MANUAL) 5 % (22-44); MONOS#(MANUAL) 0.51 x10^3/uL (0.3-2.7); MONOS% (MANUAL) 5 % (2-9); MYELOCYTES% (MANUAL) 1 % (0-0); SEG#(MANUAL) 8.79 x10^3/uL (1.8-6.8); SEGS% (MANUAL) 87 % (42-75)
[2021-01-08 05:44] LABS: LARGE PLATELETS 1+
[2021-01-08 05:45] LABS: TEAR DROPS 1+
[2021-01-08 06:57] VITALS: BP 137/92
[2021-01-08] MEDS ORDERED: MAGNESIUM SULFATE PMX 2GM/50ML 50 ML IV ONE (07:00)
[2021-01-08] MEDS ORDERED: PIPERACILLIN/TAZO 3.375 GM in SODIUM CHLORIDE 0.9% 50 ML IVPB SCH (09:00)
[2021-01-08] MEDS: PIPERACILLIN/TAZO 3.375 GM in DEXTROSE 5% 50 ML IVPB SCH ×3 (09:10→20:25)
[2021-01-08] MEDS: MAGNESIUM OXIDE 400 MG TABLET PO SCH (09:11)
[2021-01-08] MEDS: POTASSIUM CHLORIDE 20 MEQ TAB.ER.PRT PO SCH ×3 (09:11→20:27)
[2021-01-08] MEDS ORDERED: LORazepam 0.5MG TABLET PO ONE (09:30)
[2021-01-08 14:17] VITALS: BP 123/84
[2021-01-08] MEDS: ACETAMINOPHEN 325 MG TABLET PO PRN (14:23)
[2021-01-08 18:40] VITALS: BP 112/74
[2021-01-09] MEDS: OXYcodone IR 5MG TABLET PO PRN ×2 (00:40→09:51)
[2021-01-09 00:43] VITALS: BP 116/65
[2021-01-09] MEDS: PIPERACILLIN/TAZO 3.375 GM in DEXTROSE 5% 50 ML IVPB SCH ×4 (03:28→20:40)
[2021-01-09] MEDS: HEPARIN 5,000 UNITS/ML, 1ML SQ SCH ×3 (04:26→20:41)
[2021-01-09 07:32] VITALS: BP 135/82
[2021-01-09] MEDS: MAGNESIUM OXIDE 400 MG TABLET PO SCH (08:56)
[2021-01-09 09:09] LABS: ANION GAP 7 mmol/L (5-15); CHLORIDE 105 mmol/L (98-107); CREATININE 0.91 mg/dL (0.55-1.02)
[2021-01-09 14:41] VITALS: BP 148/82
[2021-01-09] MEDS: ACETAMINOPHEN 325 MG TABLET PO PRN (16:30)
[2021-01-09] MEDS: CARVEDILOL 12.5 MG TABLET PO SCH (20:40)
[2021-01-09] MEDS: SIMVASTATIN 40 MG TABLET PO SCH (20:41)
[2021-01-09 20:48] VITALS: BP 132/80
[2021-01-10 00:40] VITALS: BP 125/74
[2021-01-10] MEDS: PIPERACILLIN/TAZO 3.375 GM in DEXTROSE 5% 50 ML IVPB SCH ×3 (02:54→15:49)
[2021-01-10] MEDS: OXYcodone IR 5MG TABLET PO PRN ×4 (02:56→20:44)
[2021-01-10] MEDS: HEPARIN 5,000 UNITS/ML, 1ML SQ SCH ×3 (04:56→20:59)
[2021-01-10 05:44] LABS: MEAN CORPUSCULAR HEMOGLOBIN 28.7 pg (27.0-34.8); MEAN CORPUSCULAR HGB CONC 33.4 g/dL (32.4-35.8); MEAN PLATELET VOLUME 8.6 fL (7.4-10.4); PLATELET COUNT 231 x10^3/uL (130-400); RED BLOOD COUNT 3.45 x10^6/uL (3.82-5.3); RED CELL DISTRIBUTION WIDTH 13.6 % (9.6-15.2)
[2021-01-10 05:54] LABS: CHLORIDE 103 mmol/L (98-107)
[2021-01-10 06:09] LABS: ALANINE AMINOTRANSFERASE 52 U/L (12-78); ALBUMIN 1.9 g/dL (3.4-5.0); ALKALINE PHOSPHATASE 207 U/L (45-117); ANION GAP 9 mmol/L (5-15); BILIRUBIN,TOTAL 0.5 mg/dL (0.2-1.0); CALCIUM 8.5 mg/dL (8.5-10.1); CREATININE 0.72 mg/dL (0.55-1.02); TOTAL PROTEIN 6.3 g/dL (6.4-8.2)
[2021-01-10 06:21] LABS: MD YES
[2021-01-10 06:23] LABS: BAND#(MANUAL) 0.82 x10^3/uL; BANDS%(MANUAL) 6 % (0-7); EOS#(MANUAL) 0.14 x10^3/uL (0.0-0.4); EOS% (MANUAL) 1 % (1-7); LYMPH#(MANUAL) 0.54 x10^3/uL (1-3.4); LYMPHS% (MANUAL) 4 % (22-44); METAMYELOCYTES# (MANUAL) 0.14 x10^3/uL (0-0); METAMYELOCYTES% (MANUAL) 1 % (0-1); MONOS#(MANUAL) 0.68 x10^3/uL (0.3-2.7); MONOS% (MANUAL) 5 % (2-9); SEG#(MANUAL) 11.29 x10^3/uL (1.8-6.8); SEGS% (MANUAL) 83 % (42-75)
[2021-01-10 06:25] LABS: <PLATELET ESTIMATE> ADEQUATE; ANISOCYTOSIS 1+; LARGE PLATELETS 1+; TEAR DROPS 1+
[2021-01-10 08:22] VITALS: BP 113/81
[2021-01-10] MEDS: TEMPLATE NON-FORMULARY MED. (Fluticasone/Umeclidin/Vilanter (Trelegy Ellipta 100-62.5-25 INH SCH (08:54)
[2021-01-10] MEDS: SERTRALINE 100MG TABLET PO SCH (09:26)
[2021-01-10] MEDS: TEMPLATE NON-FORMULARY MED. (Bupropion Hcl** (Bupropion Xl**) 300 MG) PO SCH (09:26)
[2021-01-10] MEDS: CARVEDILOL 12.5 MG TABLET PO SCH ×2 (09:26→20:45)
[2021-01-10] MEDS: MAGNESIUM OXIDE 400 MG TABLET PO SCH ×2 (09:26→20:45)
[2021-01-10] MEDS: SPIRONOLACTONE 25 MG TABLET PO SCH (09:26)
[2021-01-10] MEDS: LOSARTAN 25MG TABLET PO SCH (09:26)
[2021-01-10] MEDS ORDERED: MAGNESIUM SULFATE PMX 4GM/100M 100 ML IVPB ONE (12:00)
[2021-01-10 12:21] VITALS: BP 112/64
[2021-01-10] MEDS: POTASSIUM CHLORIDE 20 MEQ TAB.ER.PRT PO SCH ×3 (12:41→20:44)
[2021-01-10 17:20] LABS: CLOSTRIDIUM DIFFICILE ANTIGEN POSITIVE
[2021-01-10 17:21] LABS: CLOSTRIDIUM DIFFICILE TOXIN NEGATIVE (Negative)
[2021-01-10 18:56] VITALS: BP 114/78
[2021-01-10] MEDS: VANCOMYCIN 50 MG/ML ORAL SUSP PO SCH (20:45)
[2021-01-10] MEDS: SIMVASTATIN 40 MG TABLET PO SCH (20:45)
[2021-01-10] MEDS: LACTOBACILLUS CHEW TABLET PO SCH (20:45)
[2021-01-10] MEDS: CEFTRIAXONE 2 GM in DEXTROSE 5% 50 ML IVPB SCH (20:58)
[2021-01-11 02:00] VITALS: BP 89/42
[2021-01-11 02:05] VITALS: BP 115/66
[2021-01-11] MEDS: VANCOMYCIN 50 MG/ML ORAL SUSP PO SCH ×4 (03:11→21:38)
[2021-01-11] MEDS: OXYcodone IR 5MG TABLET PO PRN ×4 (03:17→20:43)
[2021-01-11 05:23] LABS: MEAN CORPUSCULAR HEMOGLOBIN 29.1 pg (27.0-34.8); MEAN CORPUSCULAR HGB CONC 33.6 g/dL (32.4-35.8); MEAN PLATELET VOLUME 8.6 fL (7.4-10.4); PLATELET COUNT 270 x10^3/uL (130-400); RED BLOOD COUNT 3.49 x10^6/uL (3.82-5.3); RED CELL DISTRIBUTION WIDTH 13.7 % (9.6-15.2)
[2021-01-11 05:28] LABS: ALANINE AMINOTRANSFERASE 52 U/L (12-78); ANION GAP 5 mmol/L (5-15); CALCIUM 8.7 mg/dL (8.5-10.1); CHLORIDE 103 mmol/L (98-107)
[2021-01-11 05:30] LABS: ALKALINE PHOSPHATASE 192 U/L (45-117); BILIRUBIN,TOTAL 0.4 mg/dL (0.2-1.0); CREATININE 0.74 mg/dL (0.55-1.02); TOTAL PROTEIN 6.3 g/dL (6.4-8.2)
[2021-01-11] MEDS: HEPARIN 5,000 UNITS/ML, 1ML SQ SCH ×3 (05:55→21:39)
[2021-01-11 06:04] LABS: MD YES
[2021-01-11 06:05] LABS: BANDS%(MANUAL) 3 % (0-7); EOS#(MANUAL) 0.17 x10^3/uL (0.0-0.4); EOS% (MANUAL) 1 % (1-7); LYMPH#(MANUAL) 0.99 x10^3/uL (1-3.4); LYMPHS% (MANUAL) 6 % (22-44); METAMYELOCYTES# (MANUAL) 0.33 x10^3/uL (0-0); METAMYELOCYTES% (MANUAL) 2 % (0-1); MONOS#(MANUAL) 0.66 x10^3/uL (0.3-2.7); MONOS% (MANUAL) 4 % (2-9); SEG#(MANUAL) 13.86 x10^3/uL (1.8-6.8); SEGS% (MANUAL) 84 % (42-75)
[2021-01-11 06:06] LABS: <PLATELET ESTIMATE> ADEQUATE; <PLT MORPHOLOGY> NORMAL PLT MORPH; TEAR DROPS 1+
[2021-01-11 06:55] VITALS: BP 129/76
[2021-01-11] MEDS ORDERED: SODIUM CHLORIDE 0.9%, 500ML IVBOLUS ONE (08:00)
[2021-01-11] MEDS: CARVEDILOL 12.5 MG TABLET PO SCH ×2 (08:50→20:43)
[2021-01-11] MEDS: LOSARTAN 25MG TABLET PO SCH (08:50)
[2021-01-11] MEDS: MAGNESIUM OXIDE 400 MG TABLET PO SCH ×2 (08:51→20:43)
[2021-01-11] MEDS: LACTOBACILLUS CHEW TABLET PO SCH ×3 (08:51→20:43)
[2021-01-11] MEDS: SERTRALINE 100MG TABLET PO SCH (08:51)
[2021-01-11] MEDS: SPIRONOLACTONE 25 MG TABLET PO SCH (08:51)
[2021-01-11] MEDS: TEMPLATE NON-FORMULARY MED. (Bupropion Hcl** (Bupropion Xl**) 300 MG) PO SCH (08:52)
[2021-01-11] MEDS: TEMPLATE NON-FORMULARY MED. (Fluticasone/Umeclidin/Vilanter (Trelegy Ellipta 100-62.5-25 INH SCH (09:00)
[2021-01-11 12:48] VITALS: BP 114/69
[2021-01-11 19:04] VITALS: BP 122/76
[2021-01-11 20:40] VITALS: BP 121/77
[2021-01-11] MEDS: CEFTRIAXONE 2 GM in DEXTROSE 5% 50 ML IVPB SCH (20:43)
[2021-01-11] MEDS: SIMVASTATIN 40 MG TABLET PO SCH (20:44)
[2021-01-11] MEDS: CHOLESTYRAMINE LIGHT 4GM PACKET PO SCH (21:39)
[2021-01-12 01:06] VITALS: BP 116/72
[2021-01-12] MEDS: OXYcodone IR 5MG TABLET PO PRN ×6 (01:16→23:56)
[2021-01-12] MEDS: VANCOMYCIN 50 MG/ML ORAL SUSP PO SCH ×4 (03:02→21:52)
[2021-01-12] MEDS: HEPARIN 5,000 UNITS/ML, 1ML SQ SCH ×3 (05:19→21:52)
[2021-01-12 06:27] LABS: MEAN CORPUSCULAR HEMOGLOBIN 28.8 pg (27.0-34.8); MEAN CORPUSCULAR HGB CONC 32.8 g/dL (32.4-35.8); MEAN PLATELET VOLUME 8.2 fL (7.4-10.4); PLATELET COUNT 304 x10^3/uL (130-400); RED CELL DISTRIBUTION WIDTH 13.2 % (9.6-15.2)
[2021-01-12 06:35] LABS: ANION GAP 5 mmol/L (5-15); CALCIUM 9.5 mg/dL (8.5-10.1); CHLORIDE 98 mmol/L (98-107); CREATININE 0.68 mg/dL (0.55-1.02)
[2021-01-12 06:52] LABS: MD YES
[2021-01-12 06:54] LABS: ANISOCYTOSIS 1+; BAND#(MANUAL) 0.47 x10^3/uL; BANDS%(MANUAL) 3 % (0-7); EOS#(MANUAL) 0.16 x10^3/uL (0.0-0.4); EOS% (MANUAL) 1 % (1-7); LYMPH#(MANUAL) 1.42 x10^3/uL (1-3.4); LYMPHS% (MANUAL) 9 % (22-44); METAMYELOCYTES# (MANUAL) 0.16 x10^3/uL (0-0); METAMYELOCYTES% (MANUAL) 1 % (0-1); MONOS#(MANUAL) 0.63 x10^3/uL (0.3-2.7); MONOS% (MANUAL) 4 % (2-9); SEG#(MANUAL) 12.96 x10^3/uL (1.8-6.8); SEGS% (MANUAL) 82 % (42-75); TEAR DROPS 1+
[2021-01-12 06:55] LABS: <PLATELET ESTIMATE> ADEQUATE; <PLT MORPHOLOGY> NORMAL PLT MORPH
[2021-01-12 08:07] VITALS: BP 108/87
[2021-01-12] MEDS: MAGNESIUM OXIDE 400 MG TABLET PO SCH ×2 (08:56→21:51)
[2021-01-12] MEDS: SPIRONOLACTONE 25 MG TABLET PO SCH (08:56)
[2021-01-12] MEDS: CHOLESTYRAMINE LIGHT 4GM PACKET PO SCH ×2 (08:56→23:13)
[2021-01-12] MEDS: LACTOBACILLUS CHEW TABLET PO SCH ×3 (08:56→21:51)
[2021-01-12] MEDS: CARVEDILOL 12.5 MG TABLET PO SCH ×2 (08:56→21:52)
[2021-01-12] MEDS: SERTRALINE 100MG TABLET PO SCH (08:59)
[2021-01-12] MEDS: TEMPLATE NON-FORMULARY MED. (Fluticasone/Umeclidin/Vilanter (Trelegy Ellipta 100-62.5-25 INH SCH (09:09)
[2021-01-12] MEDS: TEMPLATE NON-FORMULARY MED. (Bupropion Hcl** (Bupropion Xl**) 300 MG) PO SCH (09:09)
[2021-01-12 13:22] LABS: BASOPHILS % (AUTO) 1 % (0-1); EOSINOPHILS % (AUTO) 1 % (1-7); LYMPHOCYTES % (AUTO) 8 % (22-44); MEAN CORPUSCULAR HEMOGLOBIN 28.9 pg (27.0-34.8); MEAN CORPUSCULAR HGB CONC 33.1 g/dL (32.4-35.8); MONOCYTES % (AUTO) 4 % (2-9); NEUTROPHILS % (AUTO) 86 % (42-75); PLATELET COUNT 307 x10^3/uL (130-400); RED BLOOD COUNT 3.54 x10^6/uL (3.82-5.3); RED CELL DISTRIBUTION WIDTH 13.2 % (9.6-15.2)
[2021-01-12 13:43] LABS: MD SCAN
[2021-01-12 14:28] VITALS: BP 124/74
[2021-01-12 19:55] VITALS: BP 121/82
[2021-01-12] MEDS: CEFTRIAXONE 2 GM in DEXTROSE 5% 50 ML IVPB SCH (20:04)
[2021-01-12] MEDS: SIMVASTATIN 40 MG TABLET PO SCH (21:51)
[2021-01-13 00:44] VITALS: BP 122/78
[2021-01-13] MEDS: VANCOMYCIN 50 MG/ML ORAL SUSP PO SCH ×4 (02:40→20:38)
[2021-01-13] MEDS: HEPARIN 5,000 UNITS/ML, 1ML SQ SCH ×3 (05:00→20:51)
[2021-01-13] MEDS: OXYcodone IR 5MG TABLET PO PRN ×6 (05:12→22:41)
[2021-01-13 05:39] LABS: BASOPHILS % (AUTO) 1 % (0-1); EOSINOPHILS % (AUTO) 1 % (1-7); LYMPHOCYTES % (AUTO) 9 % (22-44); MEAN CORPUSCULAR HEMOGLOBIN 29.2 pg (27.0-34.8); MEAN CORPUSCULAR HGB CONC 33.3 g/dL (32.4-35.8); MEAN PLATELET VOLUME 8.4 fL (7.4-10.4); MONOCYTES % (AUTO) 5 % (2-9); NEUTROPHILS % (AUTO) 85 % (42-75); PLATELET COUNT 348 x10^3/uL (130-400); RED BLOOD COUNT 3.67 x10^6/uL (3.82-5.3); RED CELL DISTRIBUTION WIDTH 12.7 % (9.6-15.2)
[2021-01-13 05:41] LABS: MD NO
[2021-01-13 05:52] LABS: ALBUMIN 2.3 g/dL (3.4-5.0); ANION GAP 9 mmol/L (5-15); CALCIUM 9.4 mg/dL (8.5-10.1); CHLORIDE 95 mmol/L (98-107)
[2021-01-13 05:55] LABS: ALANINE AMINOTRANSFERASE 34 U/L (12-78); ALKALINE PHOSPHATASE 167 U/L (45-117); BILIRUBIN,TOTAL 0.3 mg/dL (0.2-1.0); CREATININE 0.64 mg/dL (0.55-1.02); TOTAL PROTEIN 7.6 g/dL (6.4-8.2)
[2021-01-13 08:11] VITALS: BP 125/89
[2021-01-13] MEDS: CARVEDILOL 12.5 MG TABLET PO SCH ×2 (08:17→20:51)
[2021-01-13] MEDS: LACTOBACILLUS CHEW TABLET PO SCH ×3 (08:17→20:38)
[2021-01-13] MEDS: SPIRONOLACTONE 25 MG TABLET PO SCH (08:17)
[2021-01-13] MEDS: MAGNESIUM OXIDE 400 MG TABLET PO SCH ×2 (08:17→20:38)
[2021-01-13] MEDS: SERTRALINE 100MG TABLET PO SCH (08:18)
[2021-01-13] MEDS ORDERED: ALBUTEROL SULFATE 2.5 MG/3 ML NPPB PRN (09:00)
[2021-01-13] MEDS: TEMPLATE NON-FORMULARY MED. (Bupropion Hcl** (Bupropion Xl**) 300 MG) PO SCH (09:00)
[2021-01-13] MEDS: CHOLESTYRAMINE LIGHT 4GM PACKET PO SCH ×2 (10:51→20:38)
[2021-01-13 12:06] VITALS: BP 134/78
[2021-01-13] MEDS ORDERED: CALCIUM CARBONATE 500 MG TAB.CHEW PO PRN (14:30)
[2021-01-13 19:27] VITALS: BP 116/70
[2021-01-13] MEDS: SIMVASTATIN 40 MG TABLET PO SCH (20:38)
[2021-01-13] MEDS: CEFTRIAXONE 2 GM in DEXTROSE 5% 50 ML IVPB SCH (20:38)
[2021-01-14 01:01] VITALS: BP 124/67
[2021-01-14] MEDS: OXYcodone IR 5MG TABLET PO PRN ×3 (02:59→12:29)
[2021-01-14] MEDS: VANCOMYCIN 50 MG/ML ORAL SUSP PO SCH ×3 (03:05→15:04)
[2021-01-14] MEDS: HEPARIN 5,000 UNITS/ML, 1ML SQ SCH ×2 (04:55→12:30)
[2021-01-14 06:02] LABS: BASOPHILS % (AUTO) 1 % (0-1); EOSINOPHILS % (AUTO) 1 % (1-7); LYMPHOCYTES % (AUTO) 8 % (22-44); MEAN CORPUSCULAR HEMOGLOBIN 28.9 pg (27.0-34.8); MEAN PLATELET VOLUME 8.5 fL (7.4-10.4); MONOCYTES % (AUTO) 5 % (2-9); NEUTROPHILS % (AUTO) 85 % (42-75); PLATELET COUNT 377 x10^3/uL (130-400); RED BLOOD COUNT 3.49 x10^6/uL (3.82-5.3); RED CELL DISTRIBUTION WIDTH 12.8 % (9.6-15.2)
[2021-01-14 06:03] LABS: MD NO
[2021-01-14 06:10] LABS: ANION GAP 9 mmol/L (5-15); CALCIUM 9.2 mg/dL (8.5-10.1); CHLORIDE 95 mmol/L (98-107); CREATININE 0.78 mg/dL (0.55-1.02)
[2021-01-14 06:27] VITALS: BP 111/75
[2021-01-14] MEDS: CHOLESTYRAMINE LIGHT 4GM PACKET PO SCH (08:10)
[2021-01-14] MEDS: SERTRALINE 100MG TABLET PO SCH (08:11)
[2021-01-14] MEDS: LACTOBACILLUS CHEW TABLET PO SCH ×2 (08:11→15:04)
[2021-01-14] MEDS: CARVEDILOL 12.5 MG TABLET PO SCH (08:11)
[2021-01-14] MEDS: MAGNESIUM OXIDE 400 MG TABLET PO SCH (08:11)
[2021-01-14] MEDS: SPIRONOLACTONE 25 MG TABLET PO SCH (08:11)
[2021-01-14] MEDS: TEMPLATE NON-FORMULARY MED. (Bupropion Hcl** (Bupropion Xl**) 300 MG) PO SCH (08:14)
[2021-01-14 15:34] VITALS: BP 111/68
[2021-01-14] MEDS ORDERED: VANC1VIA36 PO (16:36)
[2021-01-14] MEDS ORDERED: OXYC5TAB98 PO (16:36)
[2021-01-14] MEDS ORDERED: ACID1TAB7 PO (16:36)
[2021-01-14] MEDS ORDERED: MAGN400T50 PO (16:36)
[2021-01-14] MEDS ORDERED: CIPR500T87 PO (16:36)
== END 2021-01-14 21:48 | disposition home or self-care (01) | DRG 871 ==
LOC: ED 01-07 00:26 → EDIP 01-07 01:51 → 4WST 01-07 01:53
PROVIDERS: ADMIT Internal Medicine; ATTEND Internal Medicine
DX: A41.9 Sepsis, unspecified organism (principal); G92 Toxic encephalopathy; N17.0 Acute kidney failure with tubular necrosis; N30.00 Acute cystitis without hematuria; E87.1 Hypo-osmolality and hyponatremia; E87.2 Acidosis; I42.8 Other cardiomyopathies; J96.10 Chronic respiratory failure, unspecified whether with hypoxia or hypercapnia; D64.9 Anemia, unspecified; D72.825 Bandemia; E78.1 Pure hyperglyceridemia; E78.5 Hyperlipidemia, unspecified; E86.0 Dehydration; E87.5 Hyperkalemia; E87.6 Hypokalemia; E88.09 Other disorders of plasma-protein metabolism, not elsewhere classified; F10.129 Alcohol abuse with intoxication, unspecified; I11.0 Hypertensive heart disease with heart failure; I50.9 Heart failure, unspecified; J44.9 Chronic obstructive pulmonary disease, unspecified; M51.36 Other intervertebral disc degeneration, lumbar region; F15.10 Other stimulant abuse, uncomplicated; E83.42 Hypomagnesemia; G89.29 Other chronic pain; M54.9 Dorsalgia, unspecified; F32.9 Major depressive disorder, single episode, unspecified; I95.9 Hypotension, unspecified; R74.8 Abnormal levels of other serum enzymes; Z87.891 Personal history of nicotine dependence; Z79.899 Other long term (current) drug therapy; Z79.01 Long term (current) use of anticoagulants; Z98.891 History of uterine scar from previous surgery
CPT/HCPCS: 36415; 72110; 72170; 84145; 96374; 96375; 99291; J3370; 71045; 72148; 74176; 80048; 80053; 80061; 80307; 80320; 81001; 83036; 83605; 83690; 83735; 83880; 84100; 84132; 84443; 84484; 85025; 87040; 87077; 87086; 87186; 87324; 93005; 93306; G0378; J0696; J1644; J2405; J2543; J3480; Q0162; G0480; J1630; J2060; J2270; J3475; J7030; J7040

== ENCOUNTER 2021-02-02 13:55 | Emergency (ER) | payer MEDICAID ==
[~2021-02-02] VITALS: Ht 162.6 cm; Wt 73.3 kg
[~2021-02-02 13:55] MED LIST changes: +ACID1TAB7 PO; +BUPR150T73 PO; +CARV12.5 PO; +CIPR500T87 PO; +FLUO40CA9 PO; +HYDR50TA99 PO; +LOPE-114 PO; +MAGN400T50 PO; +OXYC5TAB98 PO; +SERT100T PO; +VANC1VIA36 PO
[2021-02-02 14:41] LABS: BASOPHILS % (AUTO) 1 % (0-1); EOSINOPHILS % (AUTO) 2 % (1-7); LYMPHOCYTES % (AUTO) 27 % (22-44); MEAN CORPUSCULAR HEMOGLOBIN 29.6 pg (27.0-34.8); MEAN CORPUSCULAR HGB CONC 34.4 g/dL (32.4-35.8); MONOCYTES % (AUTO) 7 % (2-9); NEUTROPHILS % (AUTO) 64 % (42-75); PLATELET COUNT 298 x10^3/uL (130-400); RED BLOOD COUNT 3.11 x10^6/uL (3.82-5.3); RED CELL DISTRIBUTION WIDTH 13.8 % (9.6-15.2)
[2021-02-02 14:53] LABS: ALBUMIN 3.1 g/dL (3.4-5.0); ANION GAP 11 mmol/L (5-15); CALCIUM 8.5 mg/dL (8.5-10.1); CHLORIDE 110 mmol/L (98-107)
[2021-02-02 14:57] LABS: TROPONIN I < 0.015 ng/mL (0.000-0.045)
[2021-02-02 15:25] VITALS: BP 120/78
[2021-02-02] MEDS ORDERED: KETOROLAC 30 MG/1 ML ONE (15:27)
[2021-02-02] MEDS ORDERED: KETOROLAC 30 MG/1 ML IM ONE (15:30)
[2021-02-02] MEDS ORDERED: POTASSIUM CHLORIDE 20 MEQ TAB.ER.PRT PO ONE (15:30)
[2021-02-02] MEDS ORDERED: POTASSIUM CHLORIDE 20 MEQ TAB.ER.PRT ONE (15:32)
[2021-02-02 15:53] LABS: ALBUMIN 3.1 g/dL (3.4-5.0); BILIRUBIN, DIRECT 0.1 mg/dL (0.1-0.2)
[2021-02-02 15:55] LABS: BILIRUBIN,INDIRECT 0.2 mg/dL (0.0-2.0); BILIRUBIN,TOTAL 0.3 mg/dL (0.2-1.0); TOTAL PROTEIN 7.1 g/dL (6.4-8.2)
== END 2021-02-02 16:03 | disposition home or self-care (01) ==
LOC: ED 15:06
DX: R07.2 Precordial pain (principal); R10.84 Generalized abdominal pain; E87.6 Hypokalemia; I11.0 Hypertensive heart disease with heart failure; I50.9 Heart failure, unspecified; J44.9 Chronic obstructive pulmonary disease, unspecified; R94.31 Abnormal electrocardiogram [ECG] [EKG]
CPT/HCPCS: 36415; 71045; 80048; 80076; 82040; 83690; 84484; 85025; 93005; 96372; 99285; J1885